=== PATIENT | male | born 1955 | race Caucasian/White ===

== ENCOUNTER 2017-12-01 10:18 | Emergency (ER) | payer MEDICARE ==
[~2017-12-01] VITALS: Ht 175.3 cm; Wt 110.0 kg
[2017-12-01 10:28] VITALS: BP 107/53; PULSE 86; RESP 18; TEMP 98; O2SAT 98
[2017-12-01 11:01] LABS: AUTOMATED NEUTROPHIL # 2.2 TH/MM3 (1.8-7.7); BASOPHIL % 0.9 % (0.0-2.0); EOSINOPHIL % 0.4 % (0.0-4.0); HEMATOCRIT 34.4 % (39.0-51.0); HEMOGLOBIN 11.8 GM/DL (13.0-17.0); LYMPH % 20.9 % (9.0-44.0); LYMPHOCYTE # 0.7 TH/MM3 (1.0-4.8); MEAN CELL VOLUME 87.1 FL (80.0-100.0); MEAN CORPUSCULAR HEMOGLOBIN 29.9 PG (27.0-34.0); MEAN CORPUSCULAR HGB CONC 34.3 % (32.0-36.0); MEAN PLATELET VOLUME 7.7 FL (7.0-11.0); MONO % 11.5 % (0.0-8.0); MONOCYTE # 0.4 TH/MM3 (0-0.9); NEUT % 66.3 % (16.0-70.0); PLATELET COUNT 45 TH/MM3 (150-450); RED BLOOD COUNT 3.94 MIL/MM3 (4.50-5.90); RED CELL DISTRIBUTION WIDTH 16.2 % (11.6-17.2); WHITE BLOOD COUNT 3.3 TH/MM3 (4.0-11.0)
[2017-12-01 11:11] LABS: AST (GOT) 35 U/L (15-37); BICARBONATE 28.8 MEQ/L (21.0-32.0); BLOOD UREA NITROGEN 9 MG/DL (7-18); CALCIUM 8.5 MG/DL (8.5-10.1); CHLORIDE 99 MEQ/L (98-107); CREATININE 1.25 MG/DL (0.60-1.30); GLOMERULAR FILTRATION RATE 58 ML/MIN (>89); GLUCOSE,RANDOM 386 MG/DL (74-106); SODIUM (NA) 135 MEQ/L (136-145)
[2017-12-01 11:12] LABS: ALT (GPT) 30 U/L (12-78)
[2017-12-01 11:14] LABS: ALKALINE PHOSPHATASE 98 U/L (45-117); TOTAL BILIRUBIN ADULT 2.1 MG/DL (0.2-1.0); TOTAL PROTEIN 5.9 GM/DL (6.4-8.2)
[2017-12-01 11:51] VITALS: O2SAT 100
[2017-12-01 12:04] LABS: BILIRUBIN, URINE NEG (NEG); BLOOD, URINE NEG (NEG); GLUCOSE,URINE 1000 mg/dL (NEG); KETONE, URINE NEG (NEG); NITRITE,URINE NEG (NEG); PH, URINE 6.5 (5.0-8.5); SQUAMOUS EPITHELIAL CELL URINE <1 /hpf (0-5); URINE COLOR YELLOW (YELLW/STRAW); URINE LEUKOCYTE ESTERASE NEG (NEG)
--- NOTE | 2017-12-01 12:12 | PD ---
HPI Chief Complaint: Abdominal Pain Time Seen by Provider: 12:04 Travel History International Travel<30 days: No Contact w/Intl Traveler<30days: No Traveled to known affect area: No History of Present Illness HPI 62-year-old male with PMH of liver failure presents to the ED for evaluation of dizziness, unsteady gait 2 days. Patient states that he just moved from [place] where he was on hospice care. He states that he lives in [facility] and is in the process of arranging hospice care. He is vacationing in [place] right now. He states that he had a fall yesterday , at the top of the steps. He denies hitting his head or loss of consciousness. He states that he feels as if his ammonia is high. He endorses intermittent compliance with lactulose. Also complains of right lower quadrant abdominal pain, constant, no alleviating or exacerbating factors. He denies nausea, vomiting, changes in bowel habits. He endorses history of appendectomy. PFSH Past Medical History Cardiac Catheterization: Yes Cirrhosis: Yes Coronary Artery Disease: Yes Hepatitis: Yes Tetanus Vaccination: < 5 Years Influenza Vaccination: No Past Surgical History Appendectomy: Yes Coronary Artery Bypass Graft: Yes Coronary Stent: Yes Tonsillectomy: Yes Social History Alcohol Use: No Tobacco Use: No Substance Use: No Allergies-Medications (Allergen,Severity, Reaction): Coded Allergies: hydromorphone (Verified Allergy, Severe, Anaphylaxis, 12/01/17) Reported Meds & Prescriptions Reported Meds & Active Scripts Active Reported Linzess (Linaclotide) 145 Mcg Cap 145 Mcg PO DAILY Pantoprazole (Pantoprazole Sodium) 40 Mg Tab 40 Mg PO BID Lasix (Furosemide) 40 Mg Tab 40 Mg PO DAILY Buspirone (Buspirone HCl) 7.5 Mg Tab 7.5 Mg PO BID Gabapentin 300 Mg Cap 300 Mg PO TID Xifaxan (Rifaximin) 550 Mg Tab 550 Mg PO Q12HR Spironolactone 100 Mg Tab 100 Mg PO DAILY Truvada (Emtricitabine-Tenofovir Disoproxil Fumarate) 200-300 Mg Tab 1 Tab PO DAILY Oxycodone (Oxycodone HCl) 5 Mg Tab 5 Mg PO Q4H PRN Lorazepam 1 Mg Tab 1-2 Mg PO HS Restoril (Temazepam) 15 Mg Cap 45 Mg PO HS PRN Take 1 capsule (15mg) with 30mg capsule for a total dose of 45mg Restoril (Temazepam) 30 Mg Cap 45 Mg PO HS PRN Take 1 capsule (30MG) with 15mg capsule for a total dose of 45mg Tresiba Flextouch Pen Inj (Insulin Degludec Inj) 600 unit/3 ML Pen 70 Units SQ DAILY Novolog Flexpen Inj (Insulin Aspart) 300 Unit/3 Ml Pen 20 Units SQ DAILY Lactulose 10 Gram/15 Ml (15 Ml) Solution 20 Gm PO QID Review of Systems Except as stated in HPI: all other systems reviewed are Neg Physical Exam Narrative GENERAL: Well-nourished, well-developed pleasant, obese white male in no acute distress. SKIN: Focused skin assessment warm/dry. HEAD: Normocephalic. Atraumatic. EYES: No scleral icterus. No injection or drainage. PERRLA. EOMI. NECK: Supple, trachea midline. No JVD or lymphadenopathy. No midline tenderness to palpation. No limitations to range of motion. CARDIOVASCULAR: Regular rate and rhythm without murmurs, gallops, or rubs. RESPIRATORY: Breath sounds clear and equal bilaterally. No accessory muscle use. GASTROINTESTINAL: Abdomen soft, nondistended. No fluid wave shift. Tender to palpation in the right lower quadrant. Active bowel sounds. MUSCULOSKELETAL: No cyanosis, or edema. NEUROLOGICAL: Awake and alert. Cranial nerves II through XII intact. Motor and sensory grossly within normal limits. Five out of 5 muscle strength in all muscle groups. Normal speech. No pronator drift. [id number] testing slow, deliberate. BACK: Nontender without obvious deformity. No CVA tenderness. Data Data Last Documented VS Vital Signs Date Time Temp Pulse Resp B/P (MAP) Pulse Ox O2 Delivery O2 Flow Rate FiO2 12/01/17 13:39 68 15 123/63 (83) 100 12/01/17 11:51 Room Air 12/01/17 10:28 98.0 Orders Orders Ammonia (12/01/17 10:32) Complete Blood Count With Diff (12/01/17 10:32) Comprehensive Metabolic Panel (12/01/17 10:32) Urinalysis - C+S If Indicated (12/01/17 10:32) Iv Access Insert/Monitor (12/01/17 10:32) Oxygen Administration (12/01/17 10:32) Oximetry (12/01/17 10:32) Lipase (12/01/17 10:32) Ct Abd/Pel W Iv Contrast(Rout) (12/01/17 12:12) Lactulose Liq (Lactulose Liq) (12/01/17 12:30) Iohexol 350 Inj (Omnipaque 350 Inj) (12/01/17 12:36) Ed Discharge Order (12/01/17 13:20) Labs Laboratory Tests Test 12/01/17 10:30 12/01/17 10:50 White Blood Count 3.3 TH/MM3 Red Blood Count 3.94 MIL/MM3 Hemoglobin 11.8 GM/DL Hematocrit 34.4 % Mean Corpuscular Volume 87.1 FL Mean Corpuscular Hemoglobin 29.9 PG Mean Corpuscular Hemoglobin Concent 34.3 % Red Cell Distribution Width 16.2 % Platelet Count 45 TH/MM3 Mean Platelet Volume 7.7 FL Neutrophils (%) (Auto) 66.3 % Lymphocytes (%) (Auto) 20.9 % Monocytes (%) (Auto) 11.5 % Eosinophils (%) (Auto) 0.4 % Basophils (%) (Auto) 0.9 % Neutrophils # (Auto) 2.2 TH/MM3 Lymphocytes # (Auto) 0.7 TH/MM3 Monocytes # (Auto) 0.4 TH/MM3 Eosinophils # (Auto) 0.0 TH/MM3 Basophils # (Auto) 0.0 TH/MM3 CBC Comment AUTO DIFF Differential Comment AUTO DIFF CONFIRMED Platelet Estimate LOW Platelet Morphology Comment NORMAL Red Cell Morphology Comment NORMAL Blood Urea Nitrogen 9 MG/DL Creatinine 1.25 MG/DL Random Glucose 386 MG/DL Total Protein 5.9 GM/DL Albumin 3.0 GM/DL Calcium Level 8.5 MG/DL Alkaline Phosphatase 98 U/L Aspartate Amino Transf (AST/SGOT) 35 U/L Alanine Aminotransferase (ALT/SGPT) 30 U/L Total Bilirubin 2.1 MG/DL Sodium Level 135 MEQ/L Potassium Level 4.3 MEQ/L Chloride Level 99 MEQ/L Carbon Dioxide Level 28.8 MEQ/L Anion Gap 7 MEQ/L Estimat Glomerular Filtration Rate 58 ML/MIN Ammonia 43 MCMOL/L Lipase 197 U/L Urine Color YELLOW Urine Turbidity CLEAR Urine pH 6.5 Urine Specific [place] 1.008 Urine Protein NEG mg/dL Urine Glucose (UA) 1000 mg/dL Urine Ketones NEG mg/dL Urine Occult Blood NEG Urine Nitrite NEG Urine Bilirubin NEG Urine Urobilinogen LESS THAN 2.0 MG/DL Urine Leukocyte Esterase NEG Urine WBC LESS THAN 1 /hpf Urine Squamous Epithelial Cells <1 /hpf Microscopic Urinalysis Comment CULT NOT INDICATED MDM Medical Decision Making Medical Screen Exam Complete: Yes Emergency Medical Condition: Yes Differential Diagnosis hyperammonemia versus metabolic derangement versus anemia versus musculoskeletal pain versus bowel obstruction versus other Narrative Course 62-year-old male with PMH of liver failure presents to the ED for evaluation of dizziness, unsteady gait 2 days. He has been noncompliant with lactulose. He states that he had a fall yesterday. He denies hitting his head or loss of consciousness. He states that he feels as if his ammonia is high. Also complains of right lower quadrant abdominal pain. He denies nausea, vomiting, changes in bowel habits. He endorses history of appendectomy. Patient is from [place], just moved to [place], [place]. Currently vacationing in [place]. Vitals reviewed. On exam the patient is alert, somewhat slow to answer questions but no focal neuro deficits noted. He does have tenderness to palpation in the right lower quadrant. Exam is otherwise unremarkable. Patient was administered a dose of lactulose. 12/01/17 10:30 Total Protein 5.9 L, Albumin 3.0 L, Calcium Level 8.5, Alkaline Phosphatase 98, Aspartate Amino Transf (AST/SGOT) 35, Alanine Aminotransferase (ALT/SGPT) 30, Total Bilirubin 2.1 H Ammonia 43. UA: No culture indicated. 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 Markedly enlarged perisplenic and retroperitoneal varices measuring up to 3.4 cm in diameter. Splenomegaly with up to 20.2; in length. Indeterminate 1.9 cm and described lesion peripheral right lobe of liver which can be further evaluated with MRI. No ascites. No bowel obstruction per radiology read. I discussed the results of the workup with the patient and his daughter at bedside. I stressed the importance of compliance with lactulose and follow up with his primary care provider. Patient was provided a copy of the CT report. Patient is stable and discharged home. Diagnosis Primary Impression: Hyperammonemia Additional Impression: Noncompliance Referrals: Primary Care Physician Patient Instructions: Acute Liver Failure (DC), General Instructions Additional Instructions: Rest, hydrate. Take lactulose as prescribed. Follow up with your PCP upon return home. Return to the ED for worsening symptoms or any urgent or emergent medical condition. Disposition: 01 DISCHARGE HOME Condition: Stable Vanessa Son Dec 01, 2017 12:12
--- NOTE | 2017-12-01 12:21 | PD ---
Physical Exam Date Seen by Provider: Dec 01, 2017 Narrative Patient presents with a chief complaint of increasing confusion over the last several days. He reports a history of end-stage liver disease. He admits that he has been less than compliant with his lactulose for the last few days because he has been on vacation. Data Data Last Documented VS Vital Signs Date Time Temp Pulse Resp B/P (MAP) Pulse Ox O2 Delivery O2 Flow Rate FiO2 12/01/17 11:51 100 Room Air 12/01/17 10:28 98.0 86 18 107/53 (71) Orders Orders Ammonia (12/01/17 10:32) Complete Blood Count With Diff (12/01/17 10:32) Comprehensive Metabolic Panel (12/01/17 10:32) Urinalysis - C+S If Indicated (12/01/17 10:32) Iv Access Insert/Monitor (12/01/17 10:32) Oxygen Administration (12/01/17 10:32) Oximetry (12/01/17 10:32) Lipase (12/01/17 10:32) Ct Abd/Pel W Iv Contrast(Rout) (12/01/17 12:12) Lactulose Liq (Lactulose Liq) (12/01/17 12:30) Labs Laboratory Tests Test 12/01/17 10:30 12/01/17 10:50 White Blood Count 3.3 TH/MM3 Red Blood Count 3.94 MIL/MM3 Hemoglobin 11.8 GM/DL Hematocrit 34.4 % Mean Corpuscular Volume 87.1 FL Mean Corpuscular Hemoglobin 29.9 PG Mean Corpuscular Hemoglobin Concent 34.3 % Red Cell Distribution Width 16.2 % Platelet Count 45 TH/MM3 Mean Platelet Volume 7.7 FL Neutrophils (%) (Auto) 66.3 % Lymphocytes (%) (Auto) 20.9 % Monocytes (%) (Auto) 11.5 % Eosinophils (%) (Auto) 0.4 % Basophils (%) (Auto) 0.9 % Neutrophils # (Auto) 2.2 TH/MM3 Lymphocytes # (Auto) 0.7 TH/MM3 Monocytes # (Auto) 0.4 TH/MM3 Eosinophils # (Auto) 0.0 TH/MM3 Basophils # (Auto) 0.0 TH/MM3 CBC Comment AUTO DIFF Differential Comment AUTO DIFF CONFIRMED Platelet Estimate LOW Platelet Morphology Comment NORMAL Red Cell Morphology Comment NORMAL Blood Urea Nitrogen 9 MG/DL Creatinine 1.25 MG/DL Random Glucose 386 MG/DL Total Protein 5.9 GM/DL Albumin 3.0 GM/DL Calcium Level 8.5 MG/DL Alkaline Phosphatase 98 U/L Aspartate Amino Transf (AST/SGOT) 35 U/L Alanine Aminotransferase (ALT/SGPT) 30 U/L Total Bilirubin 2.1 MG/DL Sodium Level 135 MEQ/L Potassium Level 4.3 MEQ/L Chloride Level 99 MEQ/L Carbon Dioxide Level 28.8 MEQ/L Anion Gap 7 MEQ/L Estimat Glomerular Filtration Rate 58 ML/MIN Ammonia 43 MCMOL/L Lipase 197 U/L Urine Color YELLOW Urine Turbidity CLEAR Urine pH 6.5 Urine Specific [place] 1.008 Urine Protein NEG mg/dL Urine Glucose (UA) 1000 mg/dL Urine Ketones NEG mg/dL Urine Occult Blood NEG Urine Nitrite NEG Urine Bilirubin NEG Urine Urobilinogen LESS THAN 2.0 MG/DL Urine Leukocyte Esterase NEG Urine WBC LESS THAN 1 /hpf Urine Squamous Epithelial Cells <1 /hpf Microscopic Urinalysis Comment CULT NOT INDICATED MDM Supervised Visit with [facility]: Yes Narrative Course I, Dr. Bernard, have reviewed the advance practice practitioner's documentation and am in agreement, met with the patient face to face, made the diagnosis, and the medical decision making was done by me. *My assessment and Findings: Patient is awake and alert. He is just a little slow to answer questions. His ammonia is elevated. Please see Vanessa oSn PA-C's note for results of laboratory and radiographic evaluation, ED course, final diagnosis and disposition Alicia Bernard MD Dec 01, 2017 12:21
[2017-12-01] MEDS ORDERED: LACT10SO5 PO (12:22)
[2017-12-01] MEDS ORDERED: ATEN1TAB73 PO (12:22)
[2017-12-01] MEDS ORDERED: PLAV75TA29 PO (12:22)
[2017-12-01] MEDS ORDERED: NOVOINJ3 SQ (12:22)
[2017-12-01] MEDS ORDERED: REST30CA PO (12:22)
[2017-12-01] MEDS ORDERED: INSU1INJ13 SQ (12:22)
[2017-12-01] MEDS ORDERED: LACTULOSE SYRUP 20 GM/30 ML CUP PO ONE (12:30)
[2017-12-01] MEDS ORDERED: IOHEXOL 350 MG/ML 10 ML VIAL (for RAD DIAG) IVCONTRAST ONE (12:36)
--- NOTE | 2017-12-01 13:10 | RADRPT ---
EXAM DATE/TIME: 12/01/2017 12:32 [facility] COMPARISON: No previous studies available for comparison. INDICATIONS : Sweating, unable to ambulate, Right lower abdominal pain. IV CONTRAST: 72 cc Omnipaque 350 (iohexol) IV ORAL CONTRAST: No oral contrast ingested. RADIATION DOSE: 16.81 CTDIvol (mGy) MEDICAL HISTORY : Hepatitis B. Cirrhosis. SURGICAL HISTORY : CABG Appendectomy. ENCOUNTER: Initial ACUITY: 1 day PAIN SCALE: 6/10 LOCATION: Right lower quadrant abdominal TECHNIQUE: Volumetric scanning of the abdomen and pelvis was performed. Using automated exposure control and ad justment of the mA and/or kV according to patient size, radiation dose was kept as low as reasonably achievable to obtain optimal diagnostic quality images. DICOM format image data is available electro nically for review and comparison. FINDINGS: Lung bases are clear. There is marked liver cirrhosis with portal hypertension. Portal vein is probab ly chronically thrombosed with a luminal filling defect containing some calcifications. There is cave rnous transformation around the portal vein. There are markedly enlarged varices in the retroperitone um and perisplenic region measuring up to 3.4 cm in diameter. The spleen is enlarged to 20.2 cm in le ngth. There is an indeterminate low attenuation lesion in the peripheral right lobe liver measuring about 1 .9 cm in diameter. There is no ascites. No bowel obstruction. No free air. No acute bony abnormalities. CONCLUSION: 1. 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 Markedl y enlarged perisplenic and retroperitoneal varices measuring up to 3.4 cm in diameter. 2. Splenomegaly up to 20.2 cm in length. 3. Indeterminate 1.9 cm circumscribed lesion peripheral right lobe of liver which could be further ev aluated with MRI. 4. No ascites. No bowel obstruction. Eder Gonzalez MD on December 01, 2017 at 13:04 Board Certified Radiologist. This report was verified electronically.
[2017-12-01] MEDS ORDERED: LORA1TAB12 PO (13:32)
[2017-12-01] MEDS ORDERED: TRUV200300 PO (13:32)
[2017-12-01] MEDS ORDERED: PANT40TA3 PO (13:32)
[2017-12-01] MEDS ORDERED: GABA300C5 PO (13:32)
[2017-12-01] MEDS ORDERED: XIFA550T4 PO (13:32)
[2017-12-01] MEDS ORDERED: SPIR100T PO (13:32)
[2017-12-01] MEDS ORDERED: BUSP1TAB PO (13:32)
[2017-12-01] MEDS ORDERED: OXYC-392 PO (13:32)
[2017-12-01] MEDS ORDERED: REST15CA PO (13:32)
[2017-12-01] MEDS ORDERED: LINA145C PO (13:32)
[2017-12-01] MEDS ORDERED: FURO1TAB60 PO (13:32)
[2017-12-01 13:39] VITALS: BP 123/63
== END 2017-12-01 13:40 | disposition home or self-care (01) ==
LOC: NEPE 10:18
DX: E72.20 Disorder of urea cycle metabolism, unspecified (principal); I25.10 Atherosclerotic heart disease of native coronary artery without angina pectoris; K74.60 Unspecified cirrhosis of liver; B19.10 Unspecified viral hepatitis B without hepatic coma; Z91.14 Patient's other noncompliance with medication regimen; Z95.1 Presence of aortocoronary bypass graft; Z88.5 Allergy status to narcotic agent; Z79.899 Other long term (current) drug therapy
CPT/HCPCS: 74177; 80053; 81001; 82140; 83690; 85025; 99284; Q9967